=== PATIENT | female | born 1970 | race Hispanic/Latino ===

== ENCOUNTER 2023-06-08 15:59 | Emergency (ER) | payer OTHER, SELFPAY ==
[2023-06-08 16:11] VITALS: BP 120/76
--- NOTE | 2023-06-08 18:25 | ED.MUSCINJ ---
HPI-Injury
General
Chief Complaint: Musculo-Skeletal Complaint
Source: patient
Exam Limitations: none
Time Seen by Provider: 06/08/23 18:15
Travel History
Have you had any contact with someone who has COVID-19?: No
Do you have any symptoms of coronavirus? Fever > 100 degrees, chills, cough, shortness of breath, sore throat, loss of taste or smell, muscle aches, or headache?: No
History of Present Illness-Injury
Initial Injury comments:
52-year-old female presents complaining of 3 to 4 days worth of right upper thigh and groin pain after slipping at home. Lanes of pain with motion and bearing weight. No numbness or tingling. No associated back pain. No other complaints at this
time
Past History
Past History
ED Past Medical History: None
ED Past Surgical History: Orthopedic
Social History
Tobacco: Non-smoker
Phy Exam
Physical Exam
Physical Exam:
General: Well-appearing female no acute respiratory distress
Musculoskeletal exam: Right hip without deformity. She is tender to palpation anteriorly over the groin. Good range of motion.
Neurologic: Good strength to the lower extremities
Vascular: Plus dorsalis pedis pulse bilateral feet
Skin is warm no rash
Injury Course
Orders/Labs/Results
Orders:
Orders
06/08/23 18:24
CR Hip - RT w/wo Pel 2-3 Vw* Urgent
Comment:
Reason For Exam: pain in groin
Include a pelvis x-ray?: Yes
MDM/Problems Addressed
Differential Diagnosis Includes:
Right upper thigh and groin pain. Question muscular strain versus DJD. Do not suspect vascular issues.
*Critical Care Note
Total Time (30-74mins, 75-104mins- exclusive of procedures): Not Applicable
Update Note
Update Note:
X-rays right hip negative for acute bony abnormality. Suspect underlying strain of the muscle. Recommended ibuprofen and Tylenol. Stable for discharge
ED Attending Note
-
Portions of this chart may have been created with voice recognition software.� Occasional wrong word or��sound alike� substitutions may have occurred due to the inherent limitations of voice recognition software.
Discharge Plan
Departure
Patient Disposition: Home (Routine Discharge)
Date of Disposition: 06/08/23
Time of Disposition: 21:23
Patient with high blood pressure during this ER visit?: No
Discharge Problem:
Muscle strain
Instructions: Muscle and Bone Pain (DC)
Prescriptions:
No Action
diphenhydramine HCl [Benadryl Allergy] 25 mg Tablet
25 mg PO TID PRN (Reason: allergies)
prednisone 20 mg tablet
20 mg PO BID Qty: 14 0RF
montelukast [Singulair] 10 mg tablet
10 mg PO DAILY Qty: 14 0RF
fluticasone propionate [24 Hour Allergy Relief] 50 mcg/actuation spray,suspension
1 spray intranasal BID Qty: 16 0RF
Referrals:
NONE,* [Family Provider] -
Activity Restrictions/Additional Instructions:
Use ibuprofen or Tylenol for pain. Rest. Return if worse otherwise follow-up with family doctor
Interventions
Interventions:
*Risk Screen - Suicide Last Done: 06/08/23 19:55
*General Assessment Last Done: 06/08/23 19:55
*Neglect/Abuse Screening Last Done: 06/08/23 19:55
ED- Fall Risk Assessment Last Done: 06/08/23 19:57
*ED COVID-19 Vaccine History Last Done: 06/08/23 16:11
*Nursing Disposition Last Done: 06/08/23 21:40
ED-Musculoskeletal Assessment Last Done: 06/08/23 19:56
Discharge Date and Time
Discharge Date/Time: 06/08/23 21:41
== END 2023-06-08 21:41 | disposition home or self-care (01) ==
LOC: EMR 15:59
PROVIDERS: EMERGENCY PHYSICIAN Emergency Medicine
DX: S76.911A Strain of unspecified muscles, fascia and tendons at thigh level, right thigh, initial encounter (principal); W01.0XXA Fall on same level from slipping, tripping and stumbling without subsequent striking against object, initial encounter
CPT/HCPCS: 99283; 73502

== ENCOUNTER 2024-07-15 16:29 | Emergency (ER) | payer SELFPAY ==
[2024-07-15 16:41] VITALS: BP 121/63
--- NOTE | 2024-07-15 18:58 | ED.SKININJ ---
HPI-Injury
General
Chief Complaint: Eye Problems
Source: patient
Exam Limitations: none
Time Seen by Provider: 07/15/24 18:45
History of Present Illness-Injury
Initial Injury comments:
54 year old female presents with complaints of increasing pain and worsening vision out of right eye since getting splashed with bleach at work 6 days ago. She irrigated eye with water at the time. She does not wear glasses or contacts. No other
complaints at this time.
Past History
Past History
ED Past Medical History: None
ED Past Surgical History: Orthopedic
Social History
Tobacco: Non-smoker
Phy Exam
Physical Exam
Physical Exam:
General: Well appearing female NAD
HEENT: NC/AT
Right eye examined with fluorescein stain and a Hirsch lamp. pH is 7. No significant stain uptake overlying the cornea. Lids were everted no foreign bodies. There is slight irritation and injection of the sclera. The lids bilaterally are not
swollen
Skin: Surrounding skin is without erythema
Course
Orders/Labs/Results
Orders:
Orders
07/15/24 18:55
Gentamicin [Genoptic 0.3% Eye Drops] See Dose Instructions OPHTH NOW STA
Vital Signs
Initial and Last Documented VS:
Initial Vital Signs
Temp Pulse Resp BP Pulse Ox
98 F 79 16 121/63 98
07/15/24 16:41 07/15/24 16:41 07/15/24 16:41 07/15/24 16:41 07/15/24 16:41
Last Documented Vital Signs
Temp Pulse Resp BP Pulse Ox
98 F 79 16 121/63 98
07/15/24 16:41 07/15/24 16:41 07/15/24 16:41 07/15/24 16:41 07/15/24 16:41
MDM/Problems Addressed
Differential Diagnosis Includes:
Patient splashed bleach in her eye 6 days ago and presents today with worsening discomfort in vision. Visual acuity noted in chart. No obvious ulcer or erosion of the cornea. pH is neutral. The eye was irrigated with saline here. Will start on
gentamicin drops and have her follow-up with ophthalmology to further evaluation.
*Critical Care Note
Total Time (30-74mins, 75-104mins- exclusive of procedures): Not Applicable
ED Attending Note
-
Portions of this chart may have been created with voice recognition software.� Occasional wrong word or��sound alike� substitutions may have occurred due to the inherent limitations of voice recognition software.
Discharge Plan
Departure
Patient Disposition: Home (Routine Discharge)
Date of Disposition: 07/15/24
Time of Disposition: 19:07
Patient with high blood pressure during this ER visit?: No
Discharge Problem:
bleach exposure to eye
Instructions: How to Use Eye Drops
Prescriptions:
No Action
diphenhydramine HCl [Benadryl Allergy] 25 mg Tablet
25 mg PO TID PRN (Reason: allergies)
prednisone 20 mg tablet
20 mg PO BID Qty: 14 0RF
montelukast [Singulair] 10 mg tablet
10 mg PO DAILY Qty: 14 0RF
fluticasone propionate [24 Hour Allergy Relief] 50 mcg/actuation spray,suspension
1 spray intranasal BID Qty: 16 0RF
Referrals:
Brooke Elena MD [Active] -
Activity Restrictions/Additional Instructions:
Use 1 drop in URI every 4 hours. Please follow-up with eye doctor for next available appointment. Return if needed otherwise.
Use 1 gota en la orina cada 4 horas. Por favor, consulte con bragg oftalm�logo para la pr�xima atrun disponible. Regrese si es necesario.
Interventions
Interventions:
*Risk Screen - Suicide Last Done: 07/15/24 16:41
*Neglect/Abuse Screening Last Done: 07/15/24 16:41
Discharge Date and Time
Print Language: ESTONIAN
[2024-07-15] MEDS: GENOPTIC 0.3% EYE DROPS 1 DROP OPHTH (19:08)
== END 2024-07-15 19:24 | disposition home or self-care (01) ==
LOC: EMR 16:29
PROVIDERS: EMERGENCY PHYSICIAN Emergency Medicine
DX: T26.60XA Corrosion of cornea and conjunctival sac, unspecified eye, initial encounter (principal); X58.XXXA Exposure to other specified factors, initial encounter; Y92.9 Unspecified place or not applicable
CPT/HCPCS: 99282